=== PATIENT | female | born 1955 | race Caucasian/White ===

== ENCOUNTER 2018-06-11 14:56 | Inpatient (IN) ==
[2018-06-11] MEDS ORDERED: ONDANSETRON 4 MG/2 ML VIAL IV STA (15:35)
[2018-06-11] MEDS ORDERED: MORPHINE 4 MG/1 ML VIAL IV STA (15:35)
[2018-06-11] MEDS ORDERED: SODIUM CHLORIDE 0.9% 1,000 ML IV STA (15:35)
[2018-06-11 16:17] LABS: Basophils % 0.1 % (0.0-0.8); Eosinophils # 0.1 10*3/uL (0.0-0.87); Eosinophils % 1.4 % (0.00-10.9); Hematocrit 40.6 VOL% (35.7-47.0); Immature Granulocytes % 0.6 %; Immature Granulocytes Absolute 0.06 #; Lymphocytes # 0.6 10*3/uL (1.4-4.0); Lymphocytes % 6.1 % (21.3-54.2); Mean Corpuscular Hemoglobin 29 PG (27-34); Mean Corpuscular Volume 90.8 FL (87-102); Mean Platelet Volume 11.1 FL (9.6-12.0); Neutrophils % 81.8 % (38.7-73.9); Platelet Count 174 T/CUMM (130-400); Red Blood Count 4.47 MC/CUMM (3.8-5.5); Red Cell Distribution Width 13.4 % (9.3-17.3); White Blood Count 9.7 T/CUMM (4-12)
[2018-06-11 16:33] LABS: Albumin 3.5 G/DL (3.4-5.0); Bilirubin,Total 0.5 MG/DL (0.2-1.0); Calcium 8.3 MG/DL (8.5-10.1); Osmolality,Calculated 280.4 MOS/KG (273-304); Potassium 4.3 MMOL/L (3.5-5.1); Total Protein 7.2 G/DL (6.4-8.3)
[2018-06-11 17:48] LABS: Apearance,Urine CLEAR (Clear); Bilirubin,Urine Negative (Negative); Blood, Urine Small mg/dL (Negative); Glucose,Urine (UA) Negative (Negative); Hyaline Casts,Urine 1 /LPF (0-3); Ketones,Urine Negative (Negative); Nitrite,Urine Negative (Negative); Protein,Urine Negative; RBC,Urine 2 /HPF (0-4); Squamous Epithelial Cell,Urine Occasional /HPF (0-10); Urine Color Straw (Yellow); Urine Specific Gravity 1.008 (1.001-1.035); Urine Urobilinogen < 2.0 EU/DL (0.2-1.0); WBC,Urine 1 /HPF (0-6)
[2018-06-11] MEDS ORDERED: ONDANSETRON 4 MG/2 ML VIAL IV PRN (18:47)
[2018-06-11] MEDS ORDERED: BISACODYL 10 MG SUPP RECTAL PRN (18:58)
[2018-06-11] MEDS ORDERED: SODIUM CHLORIDE 0.9% 100 ML IV ONE (19:38)
[2018-06-11] MEDS ORDERED: MEROPENEM 1,000 MG VIAL IV ONE (19:38)
[2018-06-11] MEDS: MEROPENEM 1,000 MG in SODIUM CHLORIDE 0.9% 100 ML IV SCH (20:01)
[2018-06-11] MEDS: PANTOPRAZOLE 40 MG VIAL IV SCH (21:55)
[2018-06-11] MEDS: DEXTROSE 5% NACL 0.45% 1,000 ML IV SCH (21:55)
[2018-06-11] MEDS: MEPERIDINE 25 MG/1 ML VIAL IV PRN (21:58)
[2018-06-12 05:13] LABS: Basophils % 0.3 % (0.0-0.8); Eosinophils # 0.1 10*3/uL (0.0-0.87); Eosinophils % 1.8 % (0.00-10.9); Hematocrit 36.8 VOL% (35.7-47.0); Hemoglobin 11.9 GM/DL (12.0-16.0); Immature Granulocytes % 0.8 %; Immature Granulocytes Absolute 0.06 #; Lymphocytes # 0.5 10*3/uL (1.4-4.0); Lymphocytes % 6.9 % (21.3-54.2); Mean Corpuscular HGB Conc 32.3 GM/DL (32-36); Mean Corpuscular Hemoglobin 29 PG (27-34); Mean Corpuscular Volume 90.2 FL (87-102); Mean Platelet Volume 11.5 FL (9.6-12.0); Monocytes % 12.2 % (1.7-12.7); Neutrophils # 6.2 10*3/uL (1.4-7.4); Platelet Count 159 T/CUMM (130-400); Red Blood Count 4.08 MC/CUMM (3.8-5.5); Red Cell Distribution Width 13.3 % (9.3-17.3); White Blood Count 7.9 T/CUMM (4-12)
[2018-06-12 05:48] LABS: Albumin 2.8 G/DL (3.4-5.0); Bilirubin,Total 0.8 MG/DL (0.2-1.0); Calcium 8.2 MG/DL (8.5-10.1); Osmolality,Calculated 272.8 MOS/KG (273-304); Total Protein 6.2 G/DL (6.4-8.3)
[2018-06-12] MEDS: MEROPENEM 1,000 MG in SODIUM CHLORIDE 0.9% 100 ML IV SCH ×2 (06:00→17:29)
[2018-06-12] MEDS: DEXTROSE 5% NACL 0.45% 1,000 ML IV SCH ×4 (06:05→23:31)
[2018-06-12] MEDS: TACROLIMUS 1 MG PO SCH ×2 (08:57→21:50)
[2018-06-12] MEDS: MYCOPHENOLATE MOFETIL 750 MG PO SCH ×2 (08:58→21:50)
[2018-06-12] MEDS: amLODIPine 10 MG TABLET PO SCH (08:58)
[2018-06-12] MEDS: PANTOPRAZOLE 40 MG VIAL IV SCH ×2 (08:59→21:51)
[2018-06-12] MEDS: MEPERIDINE 25 MG/1 ML VIAL IV PRN (09:09)
[2018-06-12 14:13] LABS: Cancer Antigen 19-9 24.1 U/ML (0-37); Carcinoembryonic Antigen 0.6 NG/ML (0.0-5.0)
[2018-06-12] MEDS ORDERED: MYCOPHENOLATE MOFETIL 250 MG PO SCH (21:00)
[2018-06-13] MEDS: DEXTROSE 5% NACL 0.45% 1,000 ML IV SCH ×3 (03:00→20:44)
[2018-06-13] MEDS: MEROPENEM 1,000 MG in SODIUM CHLORIDE 0.9% 100 ML IV SCH ×2 (04:46→18:30)
[2018-06-13 05:11] LABS: Basophils % 0.3 % (0.0-0.8); Eosinophils # 0.1 10*3/uL (0.0-0.87); Eosinophils % 1.5 % (0.00-10.9); Hematocrit 37.3 VOL% (35.7-47.0); Hemoglobin 12.2 GM/DL (12.0-16.0); Immature Granulocytes % 0.5 %; Immature Granulocytes Absolute 0.04 #; Lymphocytes # 0.5 10*3/uL (1.4-4.0); Lymphocytes % 6.2 % (21.3-54.2); Mean Corpuscular HGB Conc 32.7 GM/DL (32-36); Mean Corpuscular Hemoglobin 29 PG (27-34); Mean Corpuscular Volume 88.6 FL (87-102); Mean Platelet Volume 11.3 FL (9.6-12.0); Monocytes # 0.8 10*3/uL (0.11-0.8); Monocytes % 10.6 % (1.7-12.7); Neutrophils % 80.9 % (38.7-73.9); Platelet Count 159 T/CUMM (130-400); Red Blood Count 4.21 MC/CUMM (3.8-5.5); Red Cell Distribution Width 13.1 % (9.3-17.3); White Blood Count 7.4 T/CUMM (4-12)
[2018-06-13 05:32] LABS: Calcium 8.4 MG/DL (8.5-10.1); Osmolality,Calculated 274.7 MOS/KG (273-304); Potassium 4.1 MMOL/L (3.5-5.1)
[2018-06-13 08:28] LABS: Albumin 2.8 G/DL (3.4-5.0); Bilirubin,Total 0.7 MG/DL (0.2-1.0); Calcium 8.6 MG/DL (8.5-10.1); Potassium 3.9 MMOL/L (3.5-5.1); Total Protein 6.8 G/DL (6.4-8.3)
[2018-06-13] MEDS: MYCOPHENOLATE MOFETIL 750 MG PO SCH ×2 (10:38→20:40)
[2018-06-13] MEDS: TACROLIMUS 1 MG PO SCH ×2 (10:38→20:35)
[2018-06-13] MEDS: amLODIPine 10 MG TABLET PO SCH (10:39)
[2018-06-13] MEDS: PANTOPRAZOLE 40 MG VIAL IV SCH ×2 (10:39→20:35)
[2018-06-14] MEDS: MEROPENEM 1,000 MG in SODIUM CHLORIDE 0.9% 100 ML IV SCH (05:55)
[2018-06-14] MEDS: DEXTROSE 5% NACL 0.45% 1,000 ML IV SCH (06:29)
[2018-06-14 06:55] LABS: Albumin 2.5 G/DL (3.4-5.0); Bilirubin,Total 0.4 MG/DL (0.2-1.0); Calcium 8.5 MG/DL (8.5-10.1); Osmolality,Calculated 278.4 MOS/KG (273-304); Potassium 3.8 MMOL/L (3.5-5.1); Total Protein 6.1 G/DL (6.4-8.3)
[2018-06-14] MEDS: amLODIPine 10 MG TABLET PO SCH (09:45)
[2018-06-14] MEDS: PANTOPRAZOLE 40 MG VIAL IV SCH (09:45)
[2018-06-14] MEDS: TACROLIMUS 1 MG PO SCH (09:46)
[2018-06-14] MEDS: MYCOPHENOLATE MOFETIL 750 MG PO SCH (09:46)
[2018-06-14 11:43] VITALS: BP 112/63
== END 2018-06-14 14:30 | disposition home or self-care (01) | DRG 439 ==
LOC: N.ED 14:56 → SUATTDRO 18:47 → N.EDINP 18:47 → N.3E 19:26
PROVIDERS: ADMIT Internal Medicine; ATTEND Internal Medicine